=== PATIENT | male | born 2000 | race Two or more races ===

== ENCOUNTER 2024-08-24 19:22 | Emergency (ER) | payer OTHER ==
[~2024-08-24] VITALS: Ht 165.1 cm; Wt 81.6 kg
[2024-08-24] MEDS ORDERED: FAMOtidine 10 MG/ML (4ML VIAL) IV ONE (20:45)
[2024-08-24] MEDS ORDERED: 0.9 % SODIUM CHLORIDE 500 ML IV ONE (20:45)
[2024-08-24 21:11] LABS: HEMATOCRIT 43.8 % (39.0-48.0); HEMOGLOBIN 14.8 g/dL (13-16.00); MEAN CELL VOLUME 89.6 fL (80.0-100.00); MEAN CORPUSCULAR HEMOGLOBIN 30.3 pg (27.00-32.0); MEAN CORPUSCULAR HGB CONC 33.8 g/dl (32.0-36.0); PLATELET COUNT 199 K/uL (150-450); RED BLOOD COUNT 4.89 M/uL (4.00-6.00); RED CELL DISTRIBUTION WIDTH 13.5 % (11.5-14.5)
[2024-08-24 21:47] LABS: ALBUMIN 4.3 gm/dL (3.4-5.0); BILIRUBIN TOTAL 0.93 mg/dL (0.3-1.2); CALCIUM 9.2 mg/dL (8.5-10.1); CREATININE SERUM 1.03 mg/dL (0.70-1.30); GFR 87.99; GLOBULINA 3.8 G/DL (2.4-3.5); POTASSIUM 3.69 mEq/L (3.5-5.1); TOTAL PROTEIN 8.1 gm/dL (6.4-8.2)
== END 2024-08-24 22:51 | disposition home or self-care (01) ==
LOC: ER 19:24
PROVIDERS: Preventive Medicine Public Health & General Preventive Medicine
DX: K52.9 Noninfective gastroenteritis and colitis, unspecified (principal)